=== PATIENT | female | born 1975 | race Hispanic/Latino ===

== ENCOUNTER 2023-07-25 13:37 | Emergency (ER) | payer OTHER, BC ==
[~2023-07-25] VITALS: Ht 154.9 cm; Wt 65.8 kg
[2023-07-25] MEDS ORDERED: IBUPROFEN 600 MG TABLET PO ONE (14:00)
[2023-07-25] MEDS ORDERED: CYCLOBENZAPRINE HCL 10 MG TABLET PO ONE (14:00)
[2023-07-25] MEDS ORDERED: CYCL-309 PO (15:22)
[2023-07-25] MEDS ORDERED: IBUP-2070 PO (15:22)
[2023-07-25 15:35] VITALS: BP 114/65; PULSE 79; RESP 16; O2SAT 97
== END 2023-07-25 16:41 | disposition home or self-care (01) ==
LOC: EDH 13:37
DX: G89.11 Acute pain due to trauma (principal); V89.2XXA Person injured in unspecified motor-vehicle accident, traffic, initial encounter; Y93.89 Activity, other specified; Y92.89 Other specified places as the place of occurrence of the external cause; Y99.8 Other external cause status
CPT/HCPCS: 71046; 72040; 73590